=== PATIENT | female | born 1945 | race Caucasian/White ===

== ENCOUNTER 2024-08-05 07:43 | Day surgery (SDC) | payer MEDICARE ==
[2024-08-05] MEDS ORDERED: Xylocaine-Mpf 2% 5 Ml Vial IJ ONE (07:44)
[2024-08-05] MEDS ORDERED: DIPRIVAN 200 MG/20 ML IV ONE (08:52)
--- NOTE | 2024-08-05 10:56 | XRAY ---
Indication: Bilateral L4-S1 MBB. Intraoperative fluoroscopy provided for 13 seconds. Single digital spot image submitted for interpretation demonstrates posterior needle tips projecting over the expected left and right L4-S1 nerve roots. Correlate with intraoperative findings/report.
--- NOTE | 2024-08-05 12:21 | XRAY ---
13 seconds of fluoroscopy was used in surgery for a bilateral L4-S1 MBB.
== END 2024-08-05 09:28 | disposition home or self-care (01) ==
LOC: SDC-PAIN 07:43
PROVIDERS: ATTEND Psychiatry & Neurology Pain Medicine
DX: M47.816 Spondylosis without myelopathy or radiculopathy, lumbar region (principal); E11.9 Type 2 diabetes mellitus without complications
CPT/HCPCS: 64493; 64494; 72020; 77002; 82947; J2704

== ENCOUNTER 2025-06-15 10:24 | Day surgery (SDC) | payer MEDICARE ==
[2025-06-15] MEDS ORDERED: LIDOCAINE HCL 1% 50 MG/5 ML VL IJ ONE (10:25)
[2025-06-15] MEDS ORDERED: BUPIVACAINE 0.5% VIAL IJ ONE (10:25)
[2025-06-15] MEDS ORDERED: methylPREDNISolone acetate IM ONE (10:25)
--- NOTE | 2025-06-15 15:01 | XRAY ---
Indication: Left L4-S1 RFA. Intraoperative fluoroscopy provided for 21 seconds. 4 digital spot image submitted for interpretation demonstrates posterior needle tips projecting over expected left L4-S1 nerve roots. Correlate with intraoperative findings/report.
--- NOTE | 2025-06-15 15:05 | XRAY ---
21 seconds of fluoroscopy was used in surgery for a left L4-S1 RFA.
== END 2025-06-15 13:36 | disposition home or self-care (01) ==
LOC: SDC-PAIN 10:24
PROVIDERS: ATTEND Psychiatry & Neurology Pain Medicine
DX: M47.817 Spondylosis without myelopathy or radiculopathy, lumbosacral region (principal); E11.9 Type 2 diabetes mellitus without complications

== ENCOUNTER 2025-07-06 08:41 | Day surgery (SDC) | payer MEDICARE ==
[2025-07-06] MEDS ORDERED: methylPREDNISolone acetate IM ONE (08:42)
[2025-07-06] MEDS ORDERED: LIDOCAINE HCL 1% 50 MG/5 ML VL IJ ONE (08:42)
[2025-07-06] MEDS ORDERED: BUPIVACAINE 0.5% VIAL IJ ONE (08:42)
--- NOTE | 2025-07-06 13:00 | XRAY ---
Indication: Right L4-S1 RFA. Intraoperative fluoroscopy provided for 20 seconds. 3 digital spot image submitted for interpretation demonstrates posterior needle tips projecting over expected right L4-S1 nerve roots. Correlate with intraoperative findings/report.
--- NOTE | 2025-07-06 13:12 | XRAY ---
20 seconds of fluoroscopy was used in surgery for a right L4-S1 RFA.
== END 2025-07-06 10:32 | disposition home or self-care (01) ==
LOC: SDC-PAIN 08:41
PROVIDERS: ATTEND Psychiatry & Neurology Pain Medicine
DX: M47.817 Spondylosis without myelopathy or radiculopathy, lumbosacral region (principal); E11.9 Type 2 diabetes mellitus without complications